=== PATIENT | male | born 1940 | race Caucasian/White ===

== ENCOUNTER → 2016-09-11 | Outpatient (CLI) | payer MEDICARE, BC ==
[~2016-09-11] MED LIST: REGADENOSON 0.4 MG/5 ML DISP.SYRIN. IV ONE
== END ==
LOC: PCVCIMAG 08:47
PROVIDERS: ATTEND Internal Medicine Cardiovascular Disease
DX: I25.10 Atherosclerotic heart disease of native coronary artery without angina pectoris (principal); I73.9 Peripheral vascular disease, unspecified; Z95.5 Presence of coronary angioplasty implant and graft; Z95.1 Presence of aortocoronary bypass graft; I71.4 Abdominal aortic aneurysm, without rupture
CPT/HCPCS: 78452; 93017; 93978; A9500; J2785

== ENCOUNTER → 2017-02-05 | Outpatient (CLI) | payer MEDICARE, BC ==
--- NOTE | 2017-02-05 11:05 | PCVCIMAG ---
APPROVED REPORT Study performed: 02/05/2017 08:52:36 EXAM: Comprehensive 2D, Doppler, and color-flow Echocardiogram Status: routine Other Information Study Quality: Adequate Indications CAD Hypertension/HDD Aortic root dilatation 2D Dimensions LVEF(%): 33.56 (>50%) IVSd: 11.56 (7-11mm) LVDd: 58.65 mmSinus of Valsalva: 51.00 mm PWd: 11.54 (7-11mm)Ascending Ao: 39.00 (22-36mm) LVDs: 49.14 (25-40mm) Left Atrium: 49.78 (27-40mm) Aortic Root: 41.65 mm LV Single Plane 4CH: 37.35 % LV Single Plane 2CH: 43.07 %Tripp's LVEF: 40.21 % Biplane EF: 38.2 % Volumes Left Atrial Volume (Systole) Single Plane 4CH: 84.46 mLSingle Plane 2CH: 101.04 mL LA ESV Index: 54.00 mL/m2 Aortic Valve AoV Peak Renard.: 1.71 m/s AO Peak Gr.: 11.85 mmHgLVOT Max P.57 mmHg LVOT Max V: 0.93 m/s AI Vmax: 4.43 m/s AI Giles: 2.89 m/s2 AI PHT: 458.48 ms Pulmonary Valve PV Peak Renard.: 0.78 m/sPV Peak Gr.: 2.50 mmHg Tricuspid Valve TR Peak Renard.: 2.31 m/s TR Peak Gr.: 21.32 mmHg Left Ventricle The left ventricle is normal size. Septal and inferior wall hypokinesis There is normal left ventricular wall thickness. Left ventricular systolic function is moderately decreased LVEF is 35-40%. Unable to assess diastolic function. Right Ventricle The right ventricle is normal size. The right ventricular systolic function is normal. Atria Left atrial enlargement The right atrium size is normal. Aortic Valve The Aortic valve is sclerotic. Moderate aortic regurgitation. There is no aortic valvular stenosis. Mitral Valve Mild mitral annular calcification. There is no mitral valve regurgitation noted. No evidence of mitral valve stenosis. Tricuspid Valve The tricuspid valve is normal in structure. Trace tricuspid regurgitation with PAP of 28 mmHg. Pulmonic Valve The pulmonary valve is normal in structure. Mild pulmonic valvular regurgitation. Great Vessels Aortic root is mildly dilated. Sinus of Valsalva aneurysm measuring 5.1 cm present. IVC is normal in size and collapses with >50% inspiration Pericardium There is no pericardial effusion. <Conclusion> Left ventricular systolic function is moderately decreased Septal and inferior wall hypokinesis. LVEF 35-40%. Left atrial enlargement The aortic valve is sclerotic. Moderate aortic regurgitation. Mild mitral annular calcification. There is no mitral valve regurgitation noted. Trileaflet aortic valve, mildly caldified. Aortic root is mildly dilated. Sinus of Valsalva dilated at 5.1 cm. Pulmonary artery pressure could not be reliably ascertained. There is no pericardial effusion.
== END | disposition home or self-care (01) ==
LOC: PCVCIMAG 08:49
PROVIDERS: ATTEND Internal Medicine Cardiovascular Disease
DX: I08.3 Combined rheumatic disorders of mitral, aortic and tricuspid valves (principal); I25.10 Atherosclerotic heart disease of native coronary artery without angina pectoris; I10 Essential (primary) hypertension
CPT/HCPCS: 93306

== ENCOUNTER → 2017-04-25 | Outpatient (CLI) | payer MEDICARE, BC | END | disposition home or self-care (01) | LOC: PCVCCLINIC 09:00 | PROVIDERS: ATTEND Internal Medicine Cardiovascular Disease | DX: I25.810 Atherosclerosis of coronary artery bypass graft(s) without angina pectoris (principal); I10 Essential (primary) hypertension; E78.5 Hyperlipidemia, unspecified; I35.1 Nonrheumatic aortic (valve) insufficiency; I65.29 Occlusion and stenosis of unspecified carotid artery; M54.17 Radiculopathy, lumbosacral region; I77.810 Thoracic aortic ectasia; I49.3 Ventricular premature depolarization; E11.9 Type 2 diabetes mellitus without complications; Z95.1 Presence of aortocoronary bypass graft; Z90.49 Acquired absence of other specified parts of digestive tract; Z79.82 Long term (current) use of aspirin; Z95.5 Presence of coronary angioplasty implant and graft; Z87.891 Personal history of nicotine dependence; Z88.1 Allergy status to other antibiotic agents; Z88.2 Allergy status to sulfonamides | CPT/HCPCS: 93005; G0463 ==

== ENCOUNTER → 2017-04-26 | Outpatient (CLI) | payer MEDICARE, BC ==
--- NOTE | 2017-04-26 13:51 | PCVCINTER ---
EXAM: T6 KYPHOPLASTY INDICATION: Back pain not responding to conservative therapy. Osteoporosis. Subacute compression fractures. PROCEDURE: Procedure and risks of kyphoplasty including bleeding, infection, apparent cement placement, and neurologic deficit were discussed with the patient and consent obtained. IV conscious sedation was utilized with appropriate monitoring from 12:15 PM through 12:45 PM. Patient was placed prone in the interventional suite and the back was prepped with a 10 minute Betadine scrub followed by Betadine pain with sterile draping. IV antibiotics were given. Under fluoroscopic guidance an 11-gauge kyphoplasty needle/cannula was advanced across the left T6 pedicle via a posterolateral approach and its tip positioned in the anterior-midline portion of the vertebral body under fluoroscopic guidance. The AVAmax kyphoplasty balloon was placed through the cannula into the vertebral body and inflated to restore height and create a void. Balloon was removed and catheter fusion cement was carefully instilled into the vertebra under continuous fluoroscopic guidance. Needle/cannula was removed. No immediate complications. FINDINGS: Technically satisfactory T6 kyphoplasty using fluoroscopic guidance. Adequate cement placement within the vertebral body. No worrisome cement placement. IMPRESSION: T6 kyphoplasty as described above. FOLLOW-UP: I will follow up with the patient in clinic in 2 weeks regarding their progress. LOC:[id number]
--- NOTE | 2017-04-26 18:04 | PCVCINTER ---
APPROVED REPORT Patient Details Patient Status: Out-Patient Room #: 1 The patient is a 76 year-old Male Event Personnel Germain Guzman RN, Kathryn Mccormick RT(R), Ryann Jacinto RT(R)() Risk Factors Arterial HypertensionDysplipidemia (Type: 1), Cerebrovascular DiseaseFamily HistoryPeripheral Vascular Disease, HypercholesterolemiaPhysical Activity, Diabetes (Control: Insulin)Last Creatanine 0.8Tobacco History (Former) Previous Procedures/Diagnoses Previous CABG, Previous Femoral Procedure, CAD, Hypertension, Valvular heart disease, Cerebrovascular disease, Diabetes Procedure Narrative The patient was brought electively to the Cardiac Catheterization Laboratory and was prepped and draped in a sterile manner. The right femoral was infiltrated with 1% Lidocaine subcutaneous anesthesia. A 6 fr sheath was inserted into the right femoral artery. Coronary angiography was performed using coronary diagnostic catheters. Left ventriculogram was performed in ALDRIDGE projection. An aortogram of the abdominal aorta was performed. Pre-demployment femoral angiogram was performed rt groin. Closure device was deployed with a 6 Fr Mynx. The patient tolerated the procedure well and there were no complications associated with the procedure. There was no hematoma. Fluoro Time: 3.7 minutes Dose: DAP 8376.1 cGycm2 937 mGy Contrast Type and Amount: omni 350 80ml Hemodynamics The aortic pressure is 126/69 mmHg with a mean of 97 mmHg. The left ventricular pressure is 141/22 mmHg with a mean of 28 mmHg. Conclusion #1 normal left ventricular size and LV function lower limits of normal EF 50% #2 abdominal aorta mildly ectatic and appears to be dual supply to renal arteries are patent with mild disease and a small right common iliac aneurysm #3 left main large free of disease giving rise to LAD and circumflex also ramus branch #4 LAD is proximally occluded and fills via a QUINN graft #5 QUINN to LAD is intact mild anastomotic narrowing otherwise well-preserved vessel which extends around the apex #6 circumflex OM is a large system with a 4050% mid vessel lesion filling a large OM previously stent mild restenosis. #7 the crow right coronary artery is a long eccentric lesion of 60-70% which then goes into an aneurysmal segment of the mid RCA breast filling is noted throughout in the distal half of this vessels well-preserved with a well preserved PDA This would not be amenable to intervention but nor is any indicated at this point. #8 SVG to diagonal branch is intact with mild irregularities relatively small diagonal system widely patent Recommendations and plan a continue aggressive risk factor modification continue current medicines. No lifting for 48 hours no line tub Jacuzzi or Chen for a week. The crow right feels an aneurysmal segment would be difficult to intervene with the proximal stent into the aneurysm. Would have to have further symptoms and/or stress testing revealing inferior wall ischemia. Will follow-up in 6 months if any symptoms recur sooner would repeat nuclear stress testing looking for inferior wall ischemia. No other significant lesions appear on the horizon.
== END | disposition home or self-care (01) ==
LOC: PCVCINTER 09:06
PROVIDERS: ATTEND Nuclear Medicine Nuclear Cardiology
DX: I25.10 Atherosclerotic heart disease of native coronary artery without angina pectoris (principal); S22.058A Other fracture of T5-T6 vertebra, initial encounter for closed fracture; I10 Essential (primary) hypertension; E11.51 Type 2 diabetes mellitus with diabetic peripheral angiopathy without gangrene; E78.00 Pure hypercholesterolemia, unspecified; X58.XXXA Exposure to other specified factors, initial encounter; Y93.89 Activity, other specified; Y92.89 Other specified places as the place of occurrence of the external cause; Y99.8 Other external cause status; Z95.1 Presence of aortocoronary bypass graft
CPT/HCPCS: 22513; 75625; 93458; 99152; 99153; C1751; C1760; C1769; C1894; Q9967

== ENCOUNTER → 2018-05-22 | Outpatient (CLI) | payer MEDICARE, BC ==
--- NOTE | 2018-05-22 12:46 | PCVCIMAG ---
APPROVED REPORT Study performed: 05/22/2018 10:39:28 EXAM: Comprehensive 2D, Doppler, and color-flow Echocardiogram Patient Location: Echo lab Status: routine BSA: 1.75 HR: 64 bpmBP: 110/62 mmHg Rhythm: Atrial Fibrillation Other Information Study Quality: Good Risk Factors: Cardiac Risk Factors: HTN, Hyperlipidemia, DM Indications Atrial Fibrillation CAD Cardiomyopathy 2D Dimensions IVSd: 11.23 (7-11mm)LVOT Diam: 19.00 (18-24mm) LVDd: 58.16 mm PWd: 10.44 (7-11mm)Ascending Ao: 40.71 (22-36mm) LVDs: 44.36 (25-40mm) Left Atrium: 44.11 (27-40mm) Aortic Root: 42.57 mm LV Single Plane 4CH: 55.39 % LV Single Plane 2CH: 56.51 % Volumes Left Atrial Volume (Systole) Single Plane 4CH: 86.06 mLSingle Plane 2CH: 58.33 mL LA ESV Index: 43.00 mL/m2 Aortic Valve AoV Peak Renard.: 1.94 m/s AO Peak Gr.: 15.13 mmHgLVOT Max P.87 mmHg LVOT Max V: 1.06 m/s JAMIE Vmax: 1.59 cm2 AI Vmax: 3.80 m/s AI Sanborn: 1.73 m/s2 AI PHT: 644.40 ms Pulmonary Valve PV Peak Renard.: 1.10 m/sPV Peak Gr.: 4.88 mmHg Tricuspid Valve TR Peak Renard.: 2.52 m/sRAP Estimate: 7.00 mmHg TR Peak Gr.: 25.33 mmHg PA Pressure: 32.00 mmHg Left Ventricle The left ventricle is normal size. Septal and inferior hypokinesis. There is normal left ventricular wall thickness. Left ventricular systolic function is mildly decreased. LVEF is 50%. This study is not technically sufficient to allow evaluation of the LV diastolic function due to atrial fibrillation. Right Ventricle The right ventricle is normal size. The right ventricular systolic function is normal. Atria Left atrium is moderately dilated. Right atrium is dilated. Aortic Valve The Aortic valve is sclerotic. Moderate aortic regurgitation. There is no aortic valvular stenosis. Mitral Valve There is mitral annular calcification. Trace mitral regurgitation. No evidence of mitral valve stenosis. Tricuspid Valve The tricuspid valve is normal in structure. Trace to mild tricuspid regurgitation. Pulmonary artery pressure is 32 mmHg. Pulmonic Valve The pulmonary valve is normal in structure. There is no pulmonic valvular regurgitation. Great Vessels Sinus of valsalva aneurysm measures 5.0 cm. IVC is normal in size and collapses >50% with inspiration. Pericardium There is no pericardial effusion. <Conclusion> The left ventricle is normal size. Left ventricular systolic function is mildly decreased. LVEF is 50%. This study is not technically sufficient to allow evaluation of the LV diastolic function due to atrial fibrillation. The right ventricle is normal size. Left atrium is moderately dilated. Right atrium is dilated. The Aortic valve is sclerotic. Moderate aortic regurgitation. There is no aortic valvular stenosis. Trace mitral regurgitation. Trace to mild tricuspid regurgitation. Pulmonary artery pressure is 32 mmHg. Sinus of valsalva aneurysm measures 5.0 cm. There is no pericardial effusion.
== END | disposition home or self-care (01) ==
LOC: PCVCIMAG 10:42
PROVIDERS: ATTEND Internal Medicine Cardiovascular Disease
DX: I25.810 Atherosclerosis of coronary artery bypass graft(s) without angina pectoris (principal); I47.1 Supraventricular tachycardia; I65.29 Occlusion and stenosis of unspecified carotid artery; I77.810 Thoracic aortic ectasia; I72.3 Aneurysm of iliac artery; I35.1 Nonrheumatic aortic (valve) insufficiency; I25.5 Ischemic cardiomyopathy; E78.5 Hyperlipidemia, unspecified; J43.8 Other emphysema; E11.9 Type 2 diabetes mellitus without complications; Z79.4 Long term (current) use of insulin; Z95.1 Presence of aortocoronary bypass graft; Z87.891 Personal history of nicotine dependence; Z79.82 Long term (current) use of aspirin
CPT/HCPCS: 80061; 93005; 93306; G0463

== ENCOUNTER → 2018-09-10 | Outpatient (CLI) | payer MEDICARE, BC ==
--- NOTE | 2018-09-10 16:57 | PCVCIMAG ---
APPROVED REPORT Imaging Protocol: Rest Tc-99m/Stress Tc-99m 1 day Study performed: 09/10/2018 13:16:17 Indication: CAD , Atrial Fibrillation, IVC, SVT, Bradycardia Patient Location: Out-Patient Stress Nurse: Amy Cook RN, Meghna Espinal RN [place] Tech:MIKAYLA Mojica Ht: 5 ft 7 in Wt: 140 lbs BSA: 1.74 m2 HR: 74 bpm BP: 176/77 mmHg BMI: 21.9 Rhythm: Sinus Rhythm PAC's, PVC's Medical History Medical History: CVD, PVD, Hyperlipidemia, CAD, Diabetes, Atrial Fibrillation, Former Smoker Medications: ASA, Atorvastatin, Glucotrol, Ativan, Metoprolol, Prednisone, Januvia, Torsemide Allergies: Losartan Cardiac Risk Factors: Age Previous Cardiac Procedures: CABG, PCI Pretest Chest Pain Characteristics: No chest pain Exercise History: Sedentary Physical Disabilities: Hips Meds Held (24 hrs): Metoprolol Resting Data Rest SPECT myocardial perfusion imaging was performed in supine position 45 minutes following the intravenous injection of 10.3 mCi of Tc-99m Sestamibi. Time of rest injection: 1245 Date: 09/10/2018 Administration Route: IV Administration Site: Right Arm Pharmacologic Stress Pharmacologic stress test was performed by injecting Regadenoson 0.4 mg IV push over 10-15 seconds immediately followed by the intravenous injection of 34.4 mCi of Tc-99m Sestamibi. Time of stress injection: 1400 Date: 09/10/2018 Administration Route: IV Administration Site: Right Arm Gated Stress SPECT was performed 45 minutes after stress injection. The images were gated to evaluate regional wall motion and calculate left ventricular ejection fraction. Stress Test Details Stress Test: Pharmacologic stress testing performed using 0.4 mg of regadenoson per 5 mL given IV over 10 seconds. Reason for pharmacologic stress test: physical limitation, hip issues. HRMax Heart Rate (APMHR): 145 bpm Resting HR: 74 bpmTarget HR (85% APMHR): 123 bpm Max HR Achieved: 96 bpm % of APMHR: 66 Recovery HR: 92 bpm BP Resting BP: 176/77 mmHg Max BP: 148/74 mmHg Recovery BP: 133/59 mmHg ECG Resting ECG: parox afib w nsr , AF, nonspecific ST-T abnormalities Stress ECG: AF, nonspecific ST-T abnormalities Recovery ECG: Sinus Rhythm, 1st degree AV block, PVCs Clinical Reason for Termination: Completed protocol Stress Symptoms: Abdominal discomfort Exercise duration: 0 min 55 sec Symptoms resolved with caffeine. Stress ECG Conclusion ECG: Non-ischemic Study Quality Study: Good Study Data Post stress, the left ventricular ejection was 36%.. SSS: 5 SRS: 6 SDS: 0 TID = 83.00. Perfusion No evidence of stress induced ischemia. 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 Wall Motion Moderately decreased left ventricular systolic function. Nuclear Conclusion No evidence of stress induced ischemia. 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 No change since prior study dated September 2016. Interpreted by: Andrea Maurice MD Electronically Approved: 09/10/2018 15:31:27 <Conclusion> ECG: Non-ischemic
--- NOTE | 2018-09-10 19:18 | PCVCIMAG ---
EXAM: AORTOILIAC DUPLEX INDICATION: Aortoiliac aneurysms. FINDINGS: AORTA: Suprarenal aorta measures maximum diameter of 2.9 cm. There is a fusiform infrarenal aortic aneurysm. The infrarenal aorta measures maximum diameter of 3.0 cm. No aortic stenosis. RIGHT COMMON ILIAC ARTERY: Maximum diameter is 2.4 cm. No significant stenosis. RIGHT EXTERNAL ILIAC ARTERY: No significant stenosis. LEFT COMMON ILIAC ARTERY: Maximum diameter is 1.7 cm. No significant stenosis. LEFT EXTERNAL ILIAC ARTERY: No significant stenosis. IMPRESSION: 3.0 cm infrarenal abdominal aortic aneurysm is unchanged compared to October 2017 study. 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 LOC:[id number]
== END | disposition home or self-care (01) ==
LOC: PCVCIMAG 13:00
PROVIDERS: ATTEND Internal Medicine Cardiovascular Disease
DX: I25.10 Atherosclerotic heart disease of native coronary artery without angina pectoris (principal); I35.1 Nonrheumatic aortic (valve) insufficiency; I72.3 Aneurysm of iliac artery; I71.4 Abdominal aortic aneurysm, without rupture; I48.91 Unspecified atrial fibrillation; E11.51 Type 2 diabetes mellitus with diabetic peripheral angiopathy without gangrene; E78.5 Hyperlipidemia, unspecified; Z87.891 Personal history of nicotine dependence; Z95.1 Presence of aortocoronary bypass graft; Z79.899 Other long term (current) drug therapy
CPT/HCPCS: 78452; 93005; 93017; 93978; A9500; G0463; J2785

== ENCOUNTER → 2018-10-29 | Outpatient (CLI) | payer MEDICARE, BC | END | disposition home or self-care (01) | LOC: PCVCCLINIC 13:34 | PROVIDERS: ATTEND Internal Medicine Cardiovascular Disease | DX: I25.10 Atherosclerotic heart disease of native coronary artery without angina pectoris (principal); I47.1 Supraventricular tachycardia; E11.9 Type 2 diabetes mellitus without complications; I72.3 Aneurysm of iliac artery; I25.5 Ischemic cardiomyopathy; I35.1 Nonrheumatic aortic (valve) insufficiency; I10 Essential (primary) hypertension; E78.00 Pure hypercholesterolemia, unspecified; D68.59 Other primary thrombophilia; K92.1 Melena; Z87.891 Personal history of nicotine dependence; Z79.899 Other long term (current) drug therapy | CPT/HCPCS: 36415; 93005; G0463 ==

== ENCOUNTER → 2019-01-07 | Outpatient (CLI) | payer MEDICARE, BC | END | disposition home or self-care (01) | LOC: PCVCCLINIC 11:00 | PROVIDERS: ATTEND Internal Medicine Cardiovascular Disease | DX: I25.10 Atherosclerotic heart disease of native coronary artery without angina pectoris (principal); I72.3 Aneurysm of iliac artery; I42.9 Cardiomyopathy, unspecified; I25.5 Ischemic cardiomyopathy; I35.1 Nonrheumatic aortic (valve) insufficiency; I65.23 Occlusion and stenosis of bilateral carotid arteries; I48.0 Paroxysmal atrial fibrillation; E78.00 Pure hypercholesterolemia, unspecified; I10 Essential (primary) hypertension; R94.31 Abnormal electrocardiogram [ECG] [EKG]; Z87.891 Personal history of nicotine dependence; Z79.899 Other long term (current) drug therapy | CPT/HCPCS: 36415; 80061; 93005; G0463 ==